=== PATIENT | male | born 1980 | race African-American/Black ===

== ENCOUNTER 2019-04-07 16:56 | Emergency (ER) | payer SELFPAY | END 2019-04-07 17:48 | disposition home or self-care (01) | LOC: ERS 16:56 | DX: J06.9 Acute upper respiratory infection, unspecified (principal); F17.210 Nicotine dependence, cigarettes, uncomplicated | CPT/HCPCS: 99283 ==

== ENCOUNTER 2021-02-19 07:30 | Emergency (ER) | payer OTHER, SELFPAY ==
[2021-02-19] MEDS ORDERED: Lidocaine 4% Cream 5 GM TUBE w/ Tegaderm ONE (07:58)
[2021-02-19] MEDS ORDERED: Lidocaine 1% PF 5 ML VIAL ONE (07:58)
[2021-02-19] MEDS ORDERED: Boostrix 0.5 ML (Tdap) VIAL ONE (08:27)
[2021-02-19] MEDS ORDERED: Ibuprofen 800 MG TAB ONE (09:46)
== END 2021-02-19 09:52 | disposition home or self-care (01) ==
LOC: ERS 07:30
DX: S51.012A Laceration without foreign body of left elbow, initial encounter (principal); V89.2XXA Person injured in unspecified motor-vehicle accident, traffic, initial encounter; F17.210 Nicotine dependence, cigarettes, uncomplicated
CPT/HCPCS: 12002; 71045; 90471; 90715

== ENCOUNTER 2021-03-05 19:09 | Emergency (ER) | payer SELFPAY | END 2021-03-05 21:51 | disposition home or self-care (01) | LOC: ERS 19:09 | DX: S41.112D Laceration without foreign body of left upper arm, subsequent encounter (principal); Z48.02 Encounter for removal of sutures; F17.210 Nicotine dependence, cigarettes, uncomplicated ==

== ENCOUNTER 2022-03-18 19:35 | Emergency (ER) | payer OTHER, SELFPAY ==
[2022-03-18] MEDS ORDERED: Acetaminophen 325 MG TAB ONE (21:21)
== END 2022-03-18 22:31 | disposition home or self-care (01) ==
LOC: ERS 19:35
DX: M62.838 Other muscle spasm (principal); F17.210 Nicotine dependence, cigarettes, uncomplicated; V89.2XXA Person injured in unspecified motor-vehicle accident, traffic, initial encounter
CPT/HCPCS: 70450; 72125; 72128; 72131